=== PATIENT | female | born 1935 | race Caucasian/White ===

== ENCOUNTER → 2019-03-16 | Outpatient (CLI) | payer MEDICARE, OTHER | LOC: RAD 09:55 | PROVIDERS: ATTEND Family Medicine | DX: Z09 Encounter for follow-up examination after completed treatment for conditions other than malignant neoplasm (principal); I82.499 Acute embolism and thrombosis of other specified deep vein of unspecified lower extremity | CPT/HCPCS: 93970 ==

== ENCOUNTER → 2021-10-26 | Outpatient (CLI) | payer MEDICARE | LOC: RAD 08:47 | PROVIDERS: ATTEND Family Medicine | DX: M79.661 Pain in right lower leg (principal); I82.531 Chronic embolism and thrombosis of right popliteal vein | CPT/HCPCS: 93971 ==